=== PATIENT | female | born 1980 | race Caucasian/White ===

== ENCOUNTER 2017-02-16 01:02 | Emergency (ER) | payer MEDICARE, MEDICAID ==
[2017-02-16 01:10] VITALS: BP 145/66
[2017-02-16] MEDS ORDERED: HYDROmorphone 1 MG/ML Syringe IVPUSH ONE (01:37)
[2017-02-16] MEDS ORDERED: Cyclobenzaprine 10 MG Tab PO ONE (01:37)
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
== END 2017-02-16 03:24 | disposition home or self-care (01) ==
LOC: JP.ED 01:02
DX: M54.5 Low back pain (principal); J45.909 Unspecified asthma, uncomplicated; F32.9 Major depressive disorder, single episode, unspecified; F17.210 Nicotine dependence, cigarettes, uncomplicated; E03.9 Hypothyroidism, unspecified; Z79.899 Other long term (current) drug therapy; F41.9 Anxiety disorder, unspecified
CPT/HCPCS: 96374; 99283; A9270; J1170